=== PATIENT | male | born 1995 | race Caucasian/White ===

== ENCOUNTER 2016-07-03 01:10 | Emergency (ER) | payer OTHER | END 2016-07-03 02:04 | disposition home or self-care (01) | LOC: ER 01:10 | DX: J20.9 Acute bronchitis, unspecified (principal); F17.210 Nicotine dependence, cigarettes, uncomplicated ==

== ENCOUNTER 2016-07-05 03:27 | Emergency (ER) | payer OTHER | END 2016-07-05 03:34 | disposition left against medical advice (07) | LOC: ER 03:27 | DX: Z53.21 Procedure and treatment not carried out due to patient leaving prior to being seen by health care provider (principal) ==